=== PATIENT | male | born 1975 | race Caucasian/White ===

== ENCOUNTER 2022-10-03 12:57 | Inpatient (IN) | payer MEDICAID ==
[~2022-10-03] VITALS: Ht 182.9 cm; Wt 88.5 kg
--- NOTE | 2022-10-03 13:00 | NUR ---
amr placed in bed 10 at this time, pd at bedside
[2022-10-03 13:02] VITALS: BP 101/45
[2022-10-03] MEDS ORDERED: NACL 0.9% 1,000 ML IV ONE ×3 (13:05→20:05)
[2022-10-03] MEDS ORDERED: NALOXONE 0.4 MG/ML VIAL IVP ONE ×2 (13:05→19:20)
[2022-10-03] MEDS ORDERED: ONDANSETRON 4 MG/2 ML VIAL IVP ONE (13:05)
[2022-10-03 13:38] LABS: BASOPHILS # (AUTO) 0.1 K/uL (0.00-0.22); BASOPHILS % (AUTO) 0.7 % (0.0-2.0); EOSINOPHILS # (AUTO) 0.1 K/uL (0-0.4); EOSINOPHILS % (AUTO) 0.9 % (0.0-4.0); HEMATOCRIT 43.1 % (36-52); HEMOGLOBIN 14.5 g/dL (12.0-18.0); LYMPHOCYTES # (AUTO) 1.2 K/uL (2.0-11.5); LYMPHOCYTES % (AUTO) 9.6 % (20.5-51.1); MEAN CORPUSCULAR HEMOGLOBIN 31 pg (27-31); MEAN CORPUSCULAR HGB CONC 34 g/dL (33-37); MEAN CORPUSCULAR VOLUME 92.4 fL (80-94); MONOCYTES # (AUTO) 1.1 K/uL (0.8-1.0); MONOCYTES % (AUTO) 9.1 % (1.7-9.3); NEUTROPHILS # (AUTO) 9.6 K/uL (1.8-7.7); NEUTROPHILS % (AUTO) 79.7 % (42.2-75.2); PLATELET COUNT (AUTO) 346 K/uL (140-450); RED BLOOD CELL COUNT(AUTO) 4.66 MIL/uL (4.20-6.10); RED CELL DISTRIBUTION WIDTH 13.4 % (11.6-13.7)
[2022-10-03 13:52] LABS: ALBUMIN 3.7 g/dL (3.4-5.0); ANION GAP 18.5 (8-16); ASPARTATE AMINOTRANSFERASE 63 U/L (15-37); CARBON DIOXIDE 24.7 mmol/L (21-32); CHLORIDE 101 mmol/L (98-107); CREATININE 1.5 mg/dL (0.6-1.3); GFR ARICAN-AMERICAN 65 mL/min (>90); GLUCOSE 140 mg/dL (74-106); POTASSIUM 4.2 mmol/L (3.5-5.1); SALICYLATE < 2.8 mg/dL (2.8-20.0); SODIUM SERUM 140 mmol/L (136-145); TOTAL BILIRUBIN 0.5 mg/dL (0.0-1.0); UREA NITROGEN, BLOOD 10 mg/dL (7-18)
[2022-10-03 13:53] LABS: ACETAMINOPHEN < 0.5 ug/ml (10-30)
[2022-10-03] MEDS ORDERED: NALO4SPR NS (14:20)
--- NOTE | 2022-10-03 19:52 | NUR ---
Dr. Mallory explained treatment plans.
--- NOTE | 2022-10-03 19:56 | NUR ---
COVID SWAB COLLECTED AND SENT TO LAB
--- NOTE | 2022-10-03 20:02 | NUR ---
Patient woke up, and request to release from hospital and refused medication or treatment.
[2022-10-03] MEDS ORDERED: DOCUSATE SODIUM 100 MG GELCAP PO PRN (20:05)
[2022-10-03] MEDS ORDERED: ONDANSETRON 4 MG/2 ML VIAL IM/IVP PRN (20:05)
[2022-10-03] MEDS ORDERED: ACETAMINOPHEN 325 MG TAB PO PRN (20:05)
[2022-10-03] MEDS ORDERED: DEXT 5% /NACL 0.9% 1,000 ML IV ONE (20:05)
[2022-10-03] MEDS ORDERED: POTASSIUM CHLORIDE 10 MEQ TABER PO PRN (20:05)
[2022-10-03] MEDS ORDERED: HYDROcodone/APAP 7.5/325 MG 1 TAB PO PRN (20:05)
[2022-10-03] MEDS ORDERED: ZOLPIDEM 5 MG TAB PO PRN (20:05)
[2022-10-03] MEDS ORDERED: guaiFENesin DM 200/20 MG-10 ML 10 ML UDC PO PRN (20:05)
[2022-10-03] MEDS ORDERED: NACL 0.9% 1,000 ML IV SCH (20:05)
[2022-10-03] MEDS ORDERED: MULTIVITAMIN-12 10 ML, FOLIC ACID 1 MG in DEXT 5% / LACT RING 1,000 ML IV ONE (20:10)
--- NOTE | 2022-10-03 20:12 | NUR ---
Spoke with patient, patient refused blood drawn and medications, and confirmed , he wants to be release from hospital.
--- NOTE | 2022-10-03 20:14 | NUR ---
Patient does not wish to proceed with medical care recommended by . Patient given information related to possible complications, up to and including , which could occur as a result of leaving hospital at this time. Patient verbalizes understanding of risks involved leaving against medical advice. Patient has signed AMA form.
--- NOTE | 2022-10-03 20:22 | NUR ---
Informed Dr. Lopez for AMA, Dr. Lopez aware.
[2022-10-03] MEDS ORDERED: ONDANSETRON 4 MG/2 ML VIAL IVP PRN (20:25)
--- NOTE | 2022-10-03 20:27 | NUR ---
PATIENTS RN STATED PATIENT IS AMA AND WILL NOT REQUIRE EKG HE WILL BE LEAVING THE HOSPITAL.
--- NOTE | 2022-10-03 20:35 | NUR ---
Called patient's family (Jase) - She will come to ER and get a ride for patient.
--- NOTE | 2022-10-03 20:38 | NUR ---
Patient spoke with his family on the phone.
[2022-10-03 20:40] VITALS: BP 119/76
[2022-10-04] MEDS ORDERED: PANTOPRAZOLE 40 MG TABEC PO SCH (09:00)
[2022-10-04] MEDS ORDERED: FOLIC ACID 1 MG TAB PO SCH (09:00)
[2022-10-04] MEDS ORDERED: MULTIVITAMIN 1 TAB PO SCH (09:00)
[2022-10-04] MEDS ORDERED: THIAMINE 100 MG TAB PO SCH (09:00)
== END 2022-10-03 20:14 | disposition left against medical advice (07) | DRG 812 ==
LOC: EDBD 12:57 → MED 12:57 → MTU 19:51 → UNDODEPER 10-04 08:12
PROVIDERS: ADMIT Family Medicine; ATTEND Family Medicine
DX: T40.2X1A Poisoning by other opioids, accidental (unintentional), initial encounter (principal); F10.129 Alcohol abuse with intoxication, unspecified; Z20.822 Contact with and (suspected) exposure to COVID-19; F19.10 Other psychoactive substance abuse, uncomplicated; Z53.29 Procedure and treatment not carried out because of patient's decision for other reasons; Y92.89 Other specified places as the place of occurrence of the external cause; Y90.3 Blood alcohol level of 60-79 mg/100 ml
CPT/HCPCS: 36415; 70450; 80053; 85025; 96361; 96374; 96375; 99285; A9153; G0480; G0482; J2310; J2405; J3490; J7030